=== PATIENT | female | born 1955 | race American Indian/Alaskan Native ===

== ENCOUNTER 2017-01-18 09:19 | Outpatient (CLI) | payer BC ==
--- NOTE | 2017-01-18 10:08 | Mammography Report ---
LEFT DIGITAL DIAGNOSTIC MAMMOGRAM with CAD: 01/18/17 09:19:00 CLINICAL: Follow-up asymmetries. COMPARISON:07/14/16 and 06/22/16 FINDINGS: ML, CC and MLO and CC spot compression views were performed and demonstrate no persistent asymmetries. IMPRESSION: Negative mammogram. BI-RADS CATEGORY: 1 - - Negative RECOMMENDATION: Return to routine mammographic screening. ACR BI-RADS MAMMOGRAPHIC CODES: 0 = Needs additional imaging evaluation; 1 = Negative; 2 = Benign; 3 = Probably benign; 4 = Suspicious; 5 = Malignant; 6 = Known biopsy-proven malignancy COMMENT: 1. Dense breast tissue, i.e., adenosis, fibrocystic changes, etc., may obscure an underlying neoplasm. 2. Approximately 10% of cancers are not detected with mammography. 3. A negative mammography report should not delay biopsy if a clinically suspicious mass is present. COMMENT: Patient follow-up letters are generated by our [employer] application.
== END 2017-01-18 09:20 | disposition home or self-care (01) ==
LOC: SPVWC 09:19
PROVIDERS: ATTEND Obstetrics & Gynecology
DX: R92.8 Other abnormal and inconclusive findings on diagnostic imaging of breast (principal)
CPT/HCPCS: G0206-LT

== ENCOUNTER 2017-02-12 10:50 | Outpatient (CLI) | payer BC ==
--- NOTE | 2017-02-12 12:01 | XRay Report ---
XRAY BILATERAL KNEE 2 VIEWS EACH: 02/12/17 10:50:00 CLINICAL: Knee pain. FINDINGS: Right: Moderate narrowing of the medial joint space and less narrowing of the lateral joint space. Small medial and lateral osteophytes. Patellofemoral joint arthritis with inferior osteophyte. No fracture or dislocation. No joint effusion. Normal soft tissues. Left: Severe osteoarthritis of the medial joint space with loss of the joint space and large osteophytes. Narrowing of the lateral joint space with small osteophytes. Severe patellofemoral joint arthritis with superior and inferior osteophytes. No fracture or dislocation. No joint effusion.Normal soft tissues. IMPRESSION: Bilateral osteoarthritis, worse on the left than the right.
== END 2017-02-12 10:51 | disposition home or self-care (01) ==
LOC: SPVIMAG 10:50
PROVIDERS: ATTEND Orthopaedic Surgery
DX: M17.0 Bilateral primary osteoarthritis of knee (principal)

== ENCOUNTER 2017-07-12 08:23 | Outpatient (CLI) | payer BC ==
--- NOTE | 2017-07-13 13:00 | Mammography Report ---
BILATERAL DIGITAL SCREENING MAMMOGRAM with CAD: 07/12/17 08:23:00 CLINICAL: Routine screening. COMPARISON:06/22/16 FINDINGS: The breasts are heterogeneously dense, which may obscure small masses.An oval circumscribed right retroareolar density is stable compared to prior exams. No new mass, architectural distortion or suspicious calcifications. IMPRESSION: No mammographic evidence of malignancy. BI-RADS CATEGORY: 2 - - Benign RECOMMENDATION: Routine mammographic screening in one year. COMMENT: Patient follow-up letters are generated by our [employer] application.
== END 2017-07-12 08:24 | disposition home or self-care (01) ==
LOC: SPVWC 08:23
PROVIDERS: ATTEND Obstetrics & Gynecology
DX: Z12.31 Encounter for screening mammogram for malignant neoplasm of breast (principal)
CPT/HCPCS: 77067

== ENCOUNTER 2017-09-27 09:13 | Outpatient (CLI) | payer BC ==
--- NOTE | 2017-09-27 14:54 | Magnetic Resonance Report ---
FINAL REPORT PROCEDURE: MR UE JOINT LT WO CON TECHNIQUE: Magnetic resonance imaging of the "RIGHT hand was performed using standard pulse sequences. HISTORY: MASS OF SKIN OF LEFT HAND COMPARISON: No prior studies are available for comparison. FINDINGS: The signal intensity from the bones of the hand appear normal. No fractures or masses are identified. There is mild thickening and heterogeneous increased signal involving the proximal half of the extensor tendon of the middle finger. This is best visualized on T2 fat-suppressed coronal image 16 and 17 series 10. This is also visualized on T2 fat-suppressed axial images 2 through image 7 series 6. A small amount of fluid is seen in the extensor tendon sheath. The appearance is consistent with tendinosis/tendinitis/partial tear and tenosynovitis. Surrounding soft tissues are otherwise unremarkable. No masses are detected. Flexor tendons are unremarkable. No effusions are seen.. IMPRESSION: Mild thickening and heterogeneous increased signal and surface irregularity involving the extensor tendon of the proximal half of the 3rd finger as described suggesting tendinosis/tendinitis/partial tear. There is also a small amount of fluid in the extensor tendon sheath consistent with tenosynovitis. No other abnormalities are seen.
== END 2017-09-27 09:14 | disposition home or self-care (01) ==
LOC: SPVIMAG 09:13 → MRI 09:14
PROVIDERS: ATTEND Nurse Practitioner Family
DX: R22.32 Localized swelling, mass and lump, left upper limb (principal)